=== PATIENT | male | born 1945 | race Caucasian/White ===

== ENCOUNTER 2022-01-01 12:17 | Emergency (ER) | payer OTHER, MEDICARE ==
[~2022-01-01] VITALS: Ht 167.6 cm; Wt 72.6 kg
[2022-01-01] MEDS ORDERED: LISI30TA4 PO (12:28)
[2022-01-01] MEDS ORDERED: PANT40TA2 PO (12:28)
[2022-01-01 12:41] LABS: *BILIRUBIN,URIN NEGATIVE (NEGATIVE); *BLOOD, URINE 1+ (NEGATIVE); *CLARITY,URINE CLEAR (CLEAR); *COLOR,URINE YELLOW (YELLOW); *KETONES,URINE NEGATIVE (NEGATIVE); *UROBILINOGEN,URINE 0.2 E.U./dl (NORMAL); LEUKOCYTE ESTERASE ,URINE NEGATIVE (NEGATIVE); NITRITE, URINE NEGATIVE (NEGATIVE); PH,URINE 5.5 (5.0-8.0); UGLUCOSE 1+ (NEGATIVE)
[2022-01-01 12:46] LABS: HEMATOCRIT 44.1 % (36.7-47.1); MEAN CORPUSCULAR HEMOGLOBIN 27.1 uug (23.8-33.4); MEAN CORPUSCULAR VOLUME 84.3 fL (73.0-96.2); PLATELET COUNT (AUTO) 255 K/uL (152-348)
[2022-01-01 12:53] LABS: CARBON DIOXIDE 28 mmol/L (21-32); CHLORIDE 104 mmol/L (98-107); CREATININE 1.4 mg/dL (0.6-1.3); GLUCOSE 172 mg/dL (74-106); POTASSIUM 4.1 mmol/L (3.5-5.1); UREA NITROGEN, BLOOD 23 mg/dL (7-18)
[2022-01-01 12:59] LABS: ALANINE AMINOTRANSFERASE 31 U/L (16-63); ALKALINE PHOSPHATASE 90 U/L (50-136); ASPARTATE AMINOTRANSFERASE 21 U/L (15-37); BILIRUBIN,DIRECT 0.1 mg/dL (0.0-0.2); BILIRUBIN,TOTAL 0.4 mg/dL (0.2-1.0); TOTAL PROTEIN, SERUM 8.1 g/dL (6.4-8.2)
[2022-01-01] MEDS ORDERED: ONDANSETRON 4 MG/2 ML VIAL IV ONE (13:00)
[2022-01-01] MEDS ORDERED: MORPHINE SULFATE 4 MG/1 ML DISP.SYRIN IV ONE (13:00)
[2022-01-01] MEDS ORDERED: IV NORMAL SALINE 1000 ML BAG IV ONE (13:00)
--- NOTE | 2022-01-01 13:02 | NUR ---
PT IS IN ROOM #2A. DR WOLFE EVALUATED THE PT.
[2022-01-01] MEDS ORDERED: ONDANSETRON 4 MG/2 ML VIAL ONE (13:05)
[2022-01-01] MEDS ORDERED: MORPHINE SULFATE 4 MG/1 ML DISP.SYRIN ONE (13:05)
[2022-01-01 13:20] LABS: BACTERIA,URINE FEW /HPF (NONE SEEN); WBC,URINE 0-3 /HPF (0-3)
[2022-01-01 13:21] LABS: SQUAMOUS EPITHELIAL CELL,UR FEW /HPF (NONE SEEN)
[2022-01-01 13:23] LABS: LIPASE 54 U/L (73-393)
[2022-01-01] MEDS ORDERED: IBUP-1955 PO (14:24)
[2022-01-01] MEDS ORDERED: TAMS-3 PO (14:24)
[2022-01-01] MEDS ORDERED: HYDR-3974 PO (14:24)
[2022-01-01] MEDS ORDERED: FENTANYL CITRATE 100 MCG/2 ML AMPUL ONE (14:29)
[2022-01-01] MEDS ORDERED: KETOROLAC TROMETHAMINE 30 MG INJ IVP ONE (14:30)
[2022-01-01] MEDS ORDERED: FENTANYL CITRATE 100 MCG/2 ML AMPUL IV ONE (14:30)
[2022-01-01] MEDS ORDERED: KETOROLAC TROMETHAMINE 15 MG INJ ONE (14:34)
--- NOTE | 2022-01-01 15:20 | NUR ---
PT WAS D/C'd TO HOME. D/C INSTRUCTIONS GIVEN TO THE PT BY DR WOLFE.
[2022-01-01 15:23] VITALS: BP 139/75
== END 2022-01-01 15:24 | disposition home or self-care (01) ==
LOC: ER 12:17
DX: N13.2 Hydronephrosis with renal and ureteral calculous obstruction (principal); Z90.49 Acquired absence of other specified parts of digestive tract; K21.9 Gastro-esophageal reflux disease without esophagitis; I10 Essential (primary) hypertension
CPT/HCPCS: 99284; 74176; 96374; 96375; 96361; 80076; 80048; 81001; 83690; 85025; 36415; J1885; J2405; J3010; J2270; J7040; A4663